=== PATIENT | male | born 1950 | race Hispanic/Latino ===

== ENCOUNTER 2017-03-22 10:57 | Emergency (ER) | payer MEDICARE, OTHER ==
[2017-03-22 11:45] LABS: Basophils % (Auto) 1.1 % (0.0-1.8); Eosinophils % (Auto) 1.6 % (0.0-4.3); Hematocrit 47.5 % (35.5-45.6); Hemoglobin 15.7 gm/dl (11.8-15.2); Mean Corpuscular HGB Conc 33 % (32-34); Mean Corpuscular Hemoglobin 30 pg (28-32); Mean Corpuscular Volume 91 fl (84-94); Platelet Count 203 K/mm3 (140-440); Red Blood Count 5.21 M/mm3 (3.65-5.03); Red Cell Distribution Width 12.6 % (13.2-15.2); White Blood Count 4.6 K/mm3 (4.5-11.0)
[2017-03-22 12:40] LABS: Anion Gap 17 mmol/L; BUN/Creatinine Ratio 10.83; Blood Urea Nitrogen 13 mg/dL (9-20); Calcium 9.1 mg/dL (8.4-10.2); Carbon Dioxide 28 mmol/L (22-30); Chloride 104.8 mmol/L (98-107); Glucose 110 mg/dL (75-100); Potassium 4.1 mmol/L (3.6-5.0); Sodium 146 mmol/L (137-145)
--- NOTE | 2017-03-22 15:54 | Emergency Department Report ---
ED Medical Clearance HPI - General Chief complaint: Medical Clearance Stated complaint: MH EVAL/MED CLEARANCE Time Seen by Provider: 03/22/17 12:55 Source: patient Mode of arrival: Ambulatory - History of Present Illness Initial comments: Patient is a 67-year-old male past medical history of Alzheimer's history is obtained by family. Patient has had aggressive behavior at prison and has refused to take his medications. Patient was sent to the emergency department for medical clearance to go to [facility] For medication adjustment so that his psych meds can be adjusted. Patient was previously at [facility]. Patient states that he is fine any abdominal pain or having any nausea or vomiting. Patient is acting calm at the moment. Allergies/Adverse reactions: Allergies Allergy/AdvReac Type Severity Reaction Status Date / Time codeine Allergy Rash Verified 03/22/17 11:23 ED Review of Systems ROS: Stated complaint: MH EVAL/MED CLEARANCE Other details as noted in HPI Comment: Unobtainable due to pts medical conditions (dementia) Psychiatric: other (behavioral problem) ED Past Medical Hx - Past Medical History Hx Hypertension: Yes Hx Dementia: Yes Additional medical history: alzhimers,Gout,kidney stones - Surgical History Past Surgical History?: No - Social History Smoking Status: Never Smoker Substance Use Type: None ED Physical Exam - General Limitations: No Limitations General appearance: alert, in no apparent distress - Head Head exam: Present: atraumatic, normocephalic - Eye Eye exam: Present: normal appearance - ENT ENT exam: Present: mucous membranes moist - Neck Neck exam: Present: normal inspection - Respiratory Respiratory exam: Present: normal lung sounds bilaterally. Absent: respiratory distress - Cardiovascular Cardiovascular Exam: Present: regular rate, normal rhythm. Absent: systolic murmur, diastolic murmur, rubs, gallop - GI/Abdominal GI/Abdominal exam: Present: soft, normal bowel sounds - Rectal Rectal exam: Present: deferred - Extremities Exam Extremities exam: Present: normal inspection - Back Exam Back exam: Present: normal inspection - Neurological Exam Neurological exam: Present: alert, other (dementia) - Psychiatric Psychiatric exam: Present: other (dementia inattentive behavior ) - Skin Skin exam: Present: warm, dry, intact, normal color. Absent: rash ED Course Vital Signs 03/22/17 11:18 Temperature 98.3 F Pulse Rate 103 H Respiratory 18 Rate Blood Pressure 139/99 O2 Sat by Pulse 96 Oximetry - Reevaluation(s) Reevaluation #1: 03/22/17 15:[address] a 1013 on patient until patient has mental health evaluation. ED Medical Decision Making - Lab Data Result diagrams: 03/22/17 11:29 03/22/17 11:29 Lab Results 03/22/17 03/22/17 03/22/17 Range/Units 11:29 11:29 11:29 WBC 4.6 (4.5-11.0) K/mm3 RBC 5.21 H (3.65-5.03) M/mm3 Hgb 15.7 H (11.8-15.2) gm/dl Hct 47.5 H (35.5-45.6) % MCV 91 (84-94) fl MCH 30 (28-32) pg MCHC 33 (32-34) % RDW 12.6 L (13.2-15.2) % Plt Count 203 (140-440) K/mm3 Lymph % (Auto) 27.0 (13.4-35.0) % [place] % (Auto) 7.2 (0.0-7.3) % Eos % (Auto) 1.6 (0.0-4.3) % Baso % (Auto) 1.1 (0.0-1.8) % Lymph # 1.2 (1.2-5.4) K/mm3 [place] # 0.3 (0.0-0.8) K/mm3 Eos # 0.1 (0.0-0.4) K/mm3 Baso # 0.1 (0.0-0.1) K/mm3 Seg Neutrophils % 63.1 (40.0-70.0) % Seg Neutrophils # 2.9 (1.8-7.7) K/mm3 Sodium 146 H (137-145) mmol/L Potassium 4.1 (3.6-5.0) mmol/L Chloride 104.8 (98-107) mmol/L Carbon Dioxide 28 (22-30) mmol/L Anion Gap 17 mmol/L BUN 13 (9-20) mg/dL Creatinine 1.2 (0.8-1.5) mg/dL Estimated GFR > 60 ml/min BUN/Creatinine Ratio 10.83 % Glucose 110 H (75-100) mg/dL Calcium 9.1 (8.4-10.2) mg/dL Plasma/Serum Alcohol < 0.01 (0-0.07) gm% - Medical Decision Making Chief medical diagnosis: Behavior change secondary to dementia Differential medical diagnosis: Metabolic abnormality, medication effect With CBC, CMP, urine drug screen, urinalysis and troponin and will have patient be seen by mental health strategic analyst. Patient's lab work is unremarkable. Due to patient's aggressive behavior toward staff at prison I have decided the patient needs further treatment at [facility] for monitoring of behavior and adjustment of that patient has been medically clear I will write 1013 hold on patient. ED Disposition Clinical Impression: Behavior concern in adult, Aggressive behavior of adult Disposition: DC-01 TO HOME OR SELFCARE Is pt being admited?: No Does the pt Need Aspirin: No Condition: Stable Referrals: PRIMARY CARE, [Primary Care Provider] - 3-5 Days Time of Disposition: 16:02
[2017-03-22 18:58] LABS: Urine Drugs of Abuse Note Disclamer
[2017-03-22 19:05] LABS: Bilirubin,Urine NEG (Negative); Blood,Urine NEG (Negative); Ketones,Urine NEG (Negative); Leukocyte Esterase,Urine NEG (Negative); Mucus,Urine FEW /HPF; Nitrite,Urine NEG (Negative); Protein,Urine <15 mg/dL mg/dL (Negative)
[2017-03-22 19:07] VITALS: BP 148/86
== END 2017-03-22 18:50 | disposition home or self-care (01) ==
LOC: ED 10:57
DX: R46.89 Other symptoms and signs involving appearance and behavior (principal); I10 Essential (primary) hypertension; G30.9 Alzheimer's disease, unspecified; F02.80 Dementia in other diseases classified elsewhere, unspecified severity, without behavioral disturbance, psychotic disturbance, mood disturbance, and anxiety; Z88.5 Allergy status to narcotic agent
CPT/HCPCS: 36415; 80048; 80307; 81001; 85025; 99284; G0480; 80320